=== PATIENT | female | born 1995 | race Two or more races ===

== ENCOUNTER 2018-05-26 21:35 | Emergency (ER) | payer OTHER ==
[~2018-05-26] VITALS: Ht 154.9 cm; Wt 90.7 kg
[2018-05-26 22:40] LABS: Basophils # (auto) 0 uL; Basophils % (auto) 0.4 % (0.0-2.0); Eosinophils # (auto) 0.2 uL; Eosinophils % (auto) 2.9 % (0.0-7.0); Hematocrit 42.4 % (36.0-46.0); Hemoglobin 14.1 g/dL (12.2-16.2); Lymphocytes # (auto) 2.9 uL; Lymphocytes % (auto) 41.6 % (10.0-50.0); Mean Corpuscular Hemoglobin 28.8 pg (28.0-32.0); Mean Corpuscular Hgb Conc. 33.4 g/dL (32.0-36.0); Mean Corpuscular Volume 86.3 fL (80.0-100.0); Monocytes # (auto) 0.7 uL; Monocytes % (auto) 10.2 % (0.0-12.0); Neutrophils # (auto) 3.1 uL; Neutrophils % (auto) 44.9 % (37.0-80.0); Nucleated Red Blood Cells % 0.2 %; Platelet Count (auto) 273 10^3/uL (140-450); Red Blood Cells 4.91 10^6/uL (4.0-5.20); White Blood Cell 6.9 10^3/uL (4.4-10.8)
[2018-05-26 22:58] LABS: Albumin 3.8 g/dL (3.4-5.0); BUN/Creatinine Ratio 19.4; Calcium 8.5 mg/dL (8.5-10.1); Potassium 3.7 mmol/L (3.5-5.1)
[2018-05-26 23:00] LABS: Bilirubin, Total 0.3 mg/dL (0.2-1.0); Total Protein 8.1 g/dL (6.4-8.2)
[2018-05-27] MEDS ORDERED: KETOROLAC TROMETH 60MG/2ML VIAL IM ONE (00:30)
[2018-05-27] MEDS ORDERED: HYDROcodone-ACET 5/325MG TAB PO ONE (00:30)
[2018-05-27 00:32] VITALS: BP 112/71
== END 2018-05-27 00:40 | disposition home or self-care (01) ==
LOC: ER 21:35
DX: G43.909 Migraine, unspecified, not intractable, without status migrainosus (principal); R11.2 Nausea with vomiting, unspecified
CPT/HCPCS: 36415; 70450; 80053; 81025; 85025; 96372; 99284; J1885

== ENCOUNTER 2018-12-25 10:36 | Emergency (ER) | payer OTHER ==
[~2018-12-25] VITALS: Ht 154.9 cm; Wt 90.7 kg
[2018-12-25 10:48] VITALS: BP 130/79
[2018-12-25 11:19] LABS: Basophils # (auto) 0 uL; Basophils % (auto) 0.3 % (0.0-2.0); Eosinophils # (auto) 0.1 uL; Hematocrit 39.9 % (36.0-46.0); Hemoglobin 13.7 g/dL (12.2-16.2); Lymphocytes # (auto) 3.2 uL; Lymphocytes % (auto) 35.2 % (10.0-50.0); Mean Corpuscular Hemoglobin 29.9 pg (28.0-32.0); Mean Corpuscular Hgb Conc. 34.3 g/dL (32.0-36.0); Mean Corpuscular Volume 87.1 fL (80.0-100.0); Monocytes # (auto) 0.6 uL; Monocytes % (auto) 6.2 % (0.0-12.0); Neutrophils # (auto) 5.2 uL; Neutrophils % (auto) 57.3 % (37.0-80.0); Nucleated Red Blood Cells % 0.1 %; Platelet Count (auto) 368 10^3/uL (140-450); Red Blood Cells 4.58 10^6/uL (4.0-5.20); Red Cell Distribution Width 13.4 % (11.8-14.3)
== END 2018-12-25 12:21 | disposition home or self-care (01) ==
LOC: ER 10:36
DX: R04.0 Epistaxis (principal); R11.0 Nausea
CPT/HCPCS: 36415; 85025

== ENCOUNTER 2019-11-25 08:31 | Emergency (ER) | payer MEDICAID, OTHER ==
[~2019-11-25] VITALS: Ht 154.9 cm; Wt 92.5 kg
[2019-11-25 09:52] VITALS: BP 180/58
== END 2019-11-25 11:34 | disposition home or self-care (01) ==
LOC: ER 08:31
DX: S60.445A External constriction of left ring finger, initial encounter (principal); S60.414A Abrasion of right ring finger, initial encounter; X58.XXXA Exposure to other specified factors, initial encounter; Y93.89 Activity, other specified; Y92.89 Other specified places as the place of occurrence of the external cause; Y99.8 Other external cause status

== ENCOUNTER 2021-10-11 07:13 | Emergency (ER) | payer MEDICAID ==
[~2021-10-11] VITALS: Ht 152.4 cm; Wt 63.0 kg
[2021-10-11] MEDS ORDERED: CYCL-837 PO (08:17)
[2021-10-11 08:19] VITALS: BP 117/72
== END 2021-10-11 08:58 | disposition home or self-care (01) ==
LOC: ER 07:13
DX: R59.0 Localized enlarged lymph nodes (principal); Z86.2 Personal history of diseases of the blood and blood-forming organs and certain disorders involving the immune mechanism; Z79.899 Other long term (current) drug therapy

== ENCOUNTER 2024-10-04 02:43 | Inpatient (IN) | payer MEDICAID ==
[~2024-10-04] VITALS: Ht 152.4 cm; Wt 65.0 kg
[2024-10-04] VITALS (38 sets, daily range): BP systolic 84–103; BP diastolic 45–67; PULSE 86–131; RESP 12–26; TEMP 98.4–99.1; O2SAT 95–100
[~2024-10-04 02:43] MED LIST: CYCL-837 PO
[2024-10-04] MEDS: SODIUM CHLORIDE 0.9% 1,000 ML IV ONE ×4 (03:00→06:59)
--- NOTE | 2024-10-04 03:20 | ED.PDOC ---
History of Present Illness HPI Comments 28-year-old female came to ER for flu-like symptoms. Patient denies any medical problems. At about 10:00 p.m. last night, started having lower abdominal crampi ng pain. By 12 midnight, cramping persisted, now associated with chills, shaking, back pains, dizziness, lightheadedness, muscle and joint pains, nausea. Patient's self-medicated with Tylenol prior to coming to the ER. Upon arrival, blood pressure of 104/68 mm Hg, tachycardic at the 150s, febrile at 101 F REVIEW OF SYSTEMS: (+) fever, (+) chills, or fatigue HEENT: No sore throat, no earache, no congestion, no neck pain. Cardiac: No chest pain. No palpitations. Lungs: No shortness of breath, no cough. GI: No nausea, no vomiting, no diarrhea, no constipation, no abdominal pain : No dysuria, frequency, or urgency. No hematuria. Musculoskeletal: No joint pain , no joint swelling, no extremity edema. (+) back pain Skin: No rash, no itching. Neuro: No headache, (+) dizziness, no weakness Physical exam General: Awake, alert and oriented. No acute distress. Skin: Skin in warm, dry and intact. Appropriate color for ethnicity. Nailbeds pink with no cyanosis. HEENT: The head is normocephalic and atraumatic. Conjunctivae are clear without exudates or hemorrhage. Sclera is non-icteric. EOM are intact. No signs of n ystagmus. Eyelids are normal in appearance without swelling or lesions. Oral mucosa is pink and moist Neck: The neck is supple with normal range of motion. No JVD. Cardiac: Heart rate and rhythm are normal. No murmurs, gallops, or rubs are auscultated. Respiratory: No signs of respiratory distress. Lung sounds are clear in all lobes bilaterally without rales, rhonchi, or wheezes. Abdominal: Abdomen is soft, non-tender without distention. Bowel sounds are present and normoactive in all four quadrants. Extremities: Upper and lower extremities are atraumatic in appearance without deformity or edema. Neurological: The patient is awake, alert and oriented to person, place, and time with normal speech. Speech is clear. There is no facial asymmetry. Psychiatric: Appropriate mood and affect. Good judgement and insight. No visual or auditory hallucinations. Chief Complaint: Flu like Time Seen by MD: 03:19 Primary Care Provider: DR. CANAS Reviewed Notes: Nurses Notes Allergies: Coded Allergies: NO KNOWN ALLERGIES (Unverified , 08/05/14) Home Meds Active Scripts Cyclobenzaprine Hcl (Cyclobenzaprine Hcl) 5 Mg Tab, 1 TAB PO QPM PRN, #14 TAB 0 Refills Prov:BRANDY SIEGEL JU 10/11/21 Information Source: Patient Mode of Arrival: Ambulatory Severity: Moderate Past Medical History PAST MEDICAL HISTORY: Anemia Surgical History: Denies all surgeries IV RN History: No Pertinent IV RN History Family History Family History: Reviewed,noncontributory to illness Social History Smoker: Non-Smoker Alcohol: Denies ETOH Use Drugs: Denies Drug Use Lives In: Home Was a procedure done? Was a procedure done?: No EKG EKG : Pulse Rate (adult): 145 Cardiac Rhythm: ST Comments Prolonged QT interval Differential Dx Considerations may include: Differential diagnoses considered include but are not limited to sepsis, CVA, ACS, PE, stroke, ICH, adrenal insufficiency, viral syndrome, thyroid storm, myxedema coma , DKA, HHS, hypoglycemia, anemia, GI bleeding, renal failure, dehydration, hepatic failure, electrolyte imbalance, carbon monoxide poisoning, malignancy, UTI, other. X-Ray, Labs, Meds, VS Vital Signs Date Time Temp Pulse Resp B/P (MAP) Pulse Ox O2 Delivery O2 Flow Rate FiO2 10/04/24 04:00 130 10/04/24 03:32 101.5 10/04/24 03:20 145 10/04/24 03:11 145 10/04/24 02:43 101.0 183 22 104/68 98 101.0 Lab Test 10/04/24 05:00 10/04/24 03:08 10/04/24 02:52 Range/Units Urine Opiates Screen Pending Urine Fentanyl Screen Pending Urine Barbiturates Screen Pending Urine Phencyclidine Screen Pending Urine Amphetamines Screen Pending Urine Benzodiazepines Screen Pending Urine Cocaine Screen Pending Urine Cannabinoids Screen Pending White Blood Count 7.4 4.4-10.8 10^3/uL Red Blood Count 4.56 4.0-5.20 10^6/uL Hemoglobin 14.2 12.2-16.2 g/dL Hematocrit 40.4 36.0-46.0 % Mean Corpuscular Volume 88.8 80.0-100.0 fL Mean Corpuscular Hemoglobin 31.2 28.0-32.0 pg Mean Corpuscular Hemoglobin Concent 35.1 32.0-36.0 g/dL Red Cell Distribution Width 13.1 11.8-14.3 % Platelet Count 257 140-450 10^3/uL Mean Platelet Volume 9.5 6.9-10.8 fL Neutrophils (%) (Auto) 94.2 H 37.0-80.0 % Lymphocytes (%) (Auto) 4.9 L 10.0-50.0 % Monocytes (%) (Auto) 0.8 0.0-12.0 % Eosinophils (%) (Auto) 0.1 0.0-7.0 % Basophils (%) (Auto) 0.0 0.0-2.0 % Neutrophils # (Auto) 7.0 1.6-8.6 10 ^3/uL Lymphocytes # (Auto) 0.4 0.4-5.4 10 ^3/uL Monocytes # (Auto) 0.1 0-1.3 10 ^3/uL Eosinophils # (Auto) 0 0-0.8 10 ^3/uL Basophils # (Auto) 0 0-0.2 10 ^3/uL Nucleated Red Blood Cells 0.0 % Sodium Level 139 136-145 mmol/L Potassium Level 2.8 L 3.5-5.1 mmol/L Chloride Level 106 98-107 mmol/L Carbon Dioxide Level 18 L 20-31 mmol/L Anion Gap 15 5-15 Blood Urea Nitrogen 12 9-23 mg/dL Creatinine 0.74 0.550-1.02 mg/dL Glomerular Filtration Rate Calc 114 >90 mL/min BUN/Creatinine Ratio 16.2 10.0-20.0 Serum Glucose 114 H 74-106 mg/dL Lactic Acid Level 1.8 0.4-2.0 mmol/L Calcium Level 9.3 8.7-10.4 mg/dL Total Bilirubin 0.6 0.2-1.0 mg/dL Aspartate Amino Transferase (AST) 48 H 13-40 U/L Alanine Aminotransferase (ALT) 35 7-40 U/L Alkaline Phosphatase 72 46-116 U/L Total Protein 7.4 5.7-8.2 g/dL Albumin 4.6 3.2-4.8 g/dL Plasma/Serum Blood Alcohol 3.3 <10 mg/dL Urine Color Pending Urine Clarity Pending Urine pH Pending Urine Specific [place] Pending Urine Protein Pending Urine Ketones Pending Urine Blood Pending Urine Nitrite Pending Urine Bilirubin Pending Urine Urobilinogen Pending Urine Leukocyte Esterase Pending Urine RBC Pending Urine Microscopic WBC Pending Urine Squamous Epithelial Cells Pending Urine Bacteria Pending Urine Glucose Pending Urine Test Pending Current Medications Medications (Trade) Dose Ordered Sig/Radha Route Start Time Stop Time Status Last Admin Sodium Chloride 1,000 ml @ 1,000 mls/hr Q1H ONCE IV 10/04/24 03:00 10/04/24 03:59 DC 10/04/24 03:00 Acetaminophen (Tylenol Tablet Or Capsule) 1,000 mg ONCE ONCE PO 10/04/24 03:15 10/04/24 03:16 DC 10/04/24 03:32 Piperacillin Sod/ Tazobactam Sod 100 ml @ 100 mls/hr ONCE ONCE IV 10/04/24 03:15 10/04/24 04:14 DC 10/04/24 03:31 Vancomycin HCl 200 ml @ 200 mls/hr ONCE ONCE IV 10/04/24 03:15 10/04/24 04:14 DC 10/04/24 04:15 Sodium Chloride 1,000 ml @ 1,000 mls/hr Q1H ONCE IV 10/04/24 03:15 10/04/24 04:14 DC 10/04/24 03:15 Time of 1ST Reevaluation: 03:12 Reevaluation 1ST: Unchanged Patient Education/Counseling: Other (Need for admission) Family Education/Counseling: No Family Present SEPSIS Sepsis Screen Date sepsis recognized/suspect: Oct 04, 2024 Time Sepsis recognized/suspect: 0243 Recent Procedure: No On Antibiotic Therapy: No Respiratory Rate >20: Yes Heart Rate >90: Yes Temp<36 C (96.8 F) or >38.3 C: Yes SBP <90 or MAP <65 mmHG: No New Acute Mental Status Change: No Is the patient on CPAP, BIPAP,: No Physician Orders Sodium Chloride 0.9% (10/04/24 03:00) Vital Signs Q1HR (10/04/24 02:52) Saline Lock (10/04/24 02:52) Retail Team Member (10/04/24 ) Rectal/Core Temps Only (10/04/24 02:52) Notify Md If Abnormal Vs (10/04/24 02:52) Blood Culture (10/04/24 02:52) Chest Xray 1 View (10/04/24 02:52) Urinalysis (10/04/24 02:52) Covid19 Antigen Luann (10/04/24 ) Rapid Influenza A&B (10/04/24 02:52) Test, Urine (10/04/24 02:52) Retail Team Member (10/04/24 ) Notify Md If Abnormal Vs (10/04/24 02:52) Electrocardigram (10/04/24 03:52) Electrocardigram (10/04/24 05:52) Potassium Chl 20meq/100ml (10/04/24 04:30) Drug Screen (10/04/24 04:21) Thyroid Stimulating Hormone (10/04/24 04:37) Vital Signs Date Time Temp Pulse Resp B/P (MAP) Pulse Ox O2 Delivery O2 Flow Rate FiO2 10/04/24 04:00 130 10/04/24 03:32 101.5 10/04/24 03:20 145 10/04/24 03:11 145 10/04/24 02:43 101.0 183 22 104/68 98 101.0 Laboratory Tests Test 10/04/24 03:08 Lactic Acid Level 1.8 mmol/L (0.4-2.0) White Blood Count 7.4 10^3/uL (4.4-10.8) Medications Medications Dose Ordered Sig/Radha Route Start Time Stop Time Status Last Admin Dose Admin Acetaminophen 1,000 mg ONCE ONCE PO 10/04/24 03:15 10/04/24 03:16 DC 10/04/24 03:32 Piperacillin Sod/ Tazobactam Sod 100 ml @ 100 mls/hr ONCE ONCE IV 10/04/24 03:15 10/04/24 04:14 DC 10/04/24 03:31 Sodium Chloride 1,000 ml @ 1,000 mls/hr Q1H ONCE IV 10/04/24 03:00 10/04/24 03:59 DC 10/04/24 03:00 Sodium Chloride 1,000 ml @ 1,000 mls/hr Q1H ONCE IV 10/04/24 03:15 10/04/24 04:14 DC 10/04/24 03:15 Vancomycin HCl 200 ml @ 200 mls/hr ONCE ONCE IV 10/04/24 03:15 10/04/24 04:14 DC 10/04/24 04:15 Departure 1 Departure Time of Disposition: 05:35 Impression: Primary Impression: Suspected sepsis Additional Impression: Hypokalemia Disposition: ADMITTED INPATIENT Condition: Guarded Comments 28-year-old female who presents to the emergency department with fever, tachyca rdia, hypotension concerning for sepsis. Sepsis protocol initiated in the ED. potassium replacement initiated. Patient admitted to hospitalist service for further treatment, evaluation and monitoring. Critical Care Note Critical Care Time?: No Stability Stability form required: No Heart Score Heart Score: Heart Score Response (Comments) Value History N/A 0 EKG N/A 0 Age N/A 0 Risk Factors N/A 0 Troponin N/A 0 Total 0 I personally scribed for CAROLINA AQUINO MD ([email or web address]) on 10/04/24 at 03:20. Electronically submitted by Matt Vasquez ([email or web address]). CAROLINA AQUINO MD Oct 04, 2024 03:20
--- NOTE | 2024-10-04 03:21 | ECG ---
[facility] Test Date: 2024-10-04 Test Time: 03:11:17 Pat Name: LAVINIA LANTIGUA Department: Room: 0246T Gender: F Personal Trainer: HAILEY : 1995 Requested By: CAROLINA AQUINO Order Number: [id number] Reading MD: Horacio Hightower Measurements Intervals [place] Rate: 145 P: 39 VA: 71 QRS: 35 QRSD: 87 T: -30 QT: 320 QTc: 497 Interpretive Statements Sinus tachycardia Borderline T abnormalities, diffuse leads Prolonged QT interval Electronically Signed On 10-07-2024 22:48:28 PDT by Horacio Hightower Please click the below link to view image of tracing.
[2024-10-04] MEDS: PIPERACILLIN-TAZOB 3.375GM 100 ML IV ONE ×2 (03:31→06:45)
[2024-10-04] MEDS: ACETAMINOPHEN 500 MG TAB or CAP PO ONE (03:32)
[2024-10-04 03:56] LABS: Hematocrit 40.4 % (36.0-46.0); Hemoglobin 14.2 g/dL (12.2-16.2); Mean Corpuscular Hemoglobin 31.2 pg (28.0-32.0); Mean Corpuscular Volume 88.8 fL (80.0-100.0); Nucleated Red Blood Cells % 0.0 %
[2024-10-04 04:14] LABS: Alanine Aminotransferase 35 U/L (7-40); Albumin 4.6 g/dL (3.2-4.8); Alkaline Phosphatase 72 U/L (46-116); Anion Gap 15 (5-15); BUN/Creatinine Ratio 16.2 (10.0-20.0); Bilirubin, Total 0.6 mg/dL (0.2-1.0); Blood Urea Nitrogen 12 mg/dL (9-23); Calcium 9.3 mg/dL (8.7-10.4); Carbon Dioxide 18 mmol/L (20-31); Chloride 106 mmol/L (98-107); Glucose 114 mg/dL (74-106); Potassium 2.8 mmol/L (3.5-5.1); Sodium 139 mmol/L (136-145); Total Protein 7.4 g/dL (5.7-8.2)
[2024-10-04] MEDS: VANCOMYCIN 1GM/200ML PM 200 ML IV ONE (04:15)
[2024-10-04] MEDS: POTASSIUM CHL 20MEQ/100ML 100 ML IV ONE (04:30)
[2024-10-04] MEDS: VANCOMYCIN HCL 1000 MG VL ONE (04:37)
[2024-10-04 05:52] LABS: Urine Protein, UAD Negative (Negative)
[2024-10-04 06:05] LABS: Amphetamine Screen, Urine Neg (NEGATIVE); Barbiturate Scree,Urine Neg (NEGATIVE); Benzodiazephine Screen, Urine Neg (NEGATIVE); Cannabinoid Screen, Urine Neg (NEGATIVE); Cocaine Screen, Urine Neg (NEGATIVE); Opiate Scree,Urine Neg (NEGATIVE); Phencyclidine Screen, Urine Neg (NEGATIVE)
--- NOTE | 2024-10-04 06:27 | DVH ---
CHEST RADIOGRAPH Indication: Suspected Sepsis Technique: Single frontal view of the chest was obtained Comparison: None FINDINGS: Lines and Tubes: None Lungs: No focal consolidation. Pleura: No effusion. No pneumothorax. Cardiomediastinal contours: Unremarkable Bones: No acute osseous abnormality. IMPRESSION: 1. No acute cardiopulmonary disease.
--- NOTE | 2024-10-04 06:39 | DVHHP2 ---
History of Present Illness Reason for Visit: fever chills body aches History of Present Illness 28-year-old female with a history of anemia and preeclampsia presents with fever, chills, body aches, nausea, headache, diarrhea, and lower abdominal cramping that began last night. She reports possible sick contact exposure at home. Last week, she experienced mild runny nose and nasal congestion, which had resolved. This morning, she awoke with the current symptoms and noted that her heart was pounding rapidly. She denies chest pain, shortness of breath, vaginal discharge, or dyspareunia. No prior history of heart disease.On arrival, she was febrile (Tmax 101.0F) and tachycardic (HR 183). She received 3 liters of IV normal saline and acetaminophen in the ED. CBC was unremarkable; potassium was 2.8, glucose 114, AST 48, TSH 1.40 UA unremarkable, ethanol level 3.3. COVID-19 and influenza testing were sent and are pending. Chest X-ray was unremarkable. She will be admitted for further evaluation and management of likely acute sepsis of unknown source. Past Medical History See HPI above Past Surgical History See HPI above Family History Reviewed, non-contributory to the management of this case. Past Social History The patient lives at home, denies smoking, alcohol or illicit drugs abuse. Review of Systems Constitutional: Yes: Fever, Chills, Weakness, Malaise; No: Sweats, Other Eyes: No: Pain, Vision change, Conjunctivae inflammation, Eyelid inflammation, Other, Redness ENT: No: Ear pain, Ear discharge, Nose pain, Nose discharge, Nose congestion, Mouth pain, Mouth swelling, Throat pain, Throat swelling, Other Respiratory: No: Cough, Dry, Shortness of breath, SOB with excertion, Wheezing, Hemoptysis, Pleuritic Pain, Sputum, Wheezing, Other Cardiovascular: No: Chest Pain, Palpitations, Orthopnea, Paroxysmal Noc. Dyspnea, Edema, Lt Headedness, Other Gastrointestinal: Nausea, Vomiting, Abdominal Pain, Diarrhea; No: Constipation, Melena, Hematochezia, Other Genitourinary: No Dysuria, No Frequency, No Incontinence, No Hematuria, No Retention, No Other Musculoskeletal: No: other, neck pain, shoulder pain, arm pain, back pain, hand pain, leg pain, foot pain Skin: No: Rash, Lesions, Jaundice, Bruising, Other Neurological: Weakness; No: Numbness, Incoordination, Change in speech, Confusion, Seizures, Other Allergies: Coded Allergies: NO KNOWN ALLERGIES (Unverified , 08/05/14) Exam Vital Signs Vital Signs Date Time Temp Pulse Resp B/P (MAP) Pulse Ox O2 Delivery O2 Flow Rate FiO2 10/04/24 04:00 130 10/04/24 03:32 101.5 10/04/24 02:43 22 104/68 98 General Appearance: Alert, Oriented X3, Cooperative, Other (Flushed face) HEENT: Atraumatic, PERRLA, EOMI, Mucous membr. moist/pink Respiratory: Clear to auscultation, Normal air movement Cardiovascular: Normal S1, Normal S2, Other (Tachycardia) Abdominal: Normal bowel sounds, Soft, No tenderness, No hepatospenomegaly, No masses Extremities: No clubbing, No cyanosis, No edema, Normal pulses, No tenderness/swelling Skin: No rashes, No breakdown, No significant lesion Neuro: Other (Neuro nonfocal) Psych/Mental Status: Mental status NL, Mood NL Labs/Xrays Chest x-ray unremarkable I reviewed labs, imaging CT scan abdomen pelvis, EKG and all diagnostic studies on this patient from ED records and the medical chart Labs Test 10/04/24 05:00 10/04/24 03:08 10/04/24 02:52 Range/Units Urine Opiates Screen Neg NEGATIVE Urine Fentanyl Screen Neg NEGATIVE Urine Barbiturates Screen Neg NEGATIVE Urine Phencyclidine Screen Neg NEGATIVE Urine Amphetamines Screen Neg NEGATIVE Urine Benzodiazepines Screen Neg NEGATIVE Urine Cocaine Screen Neg NEGATIVE Urine Cannabinoids Screen Neg NEGATIVE White Blood Count 7.4 4.4-10.8 10^3/uL Red Blood Count 4.56 4.0-5.20 10^6/uL Hemoglobin 14.2 12.2-16.2 g/dL Hematocrit 40.4 36.0-46.0 % Mean Corpuscular Volume 88.8 80.0-100.0 fL Mean Corpuscular Hemoglobin 31.2 28.0-32.0 pg Mean Corpuscular Hemoglobin Concent 35.1 32.0-36.0 g/dL Red Cell Distribution Width 13.1 11.8-14.3 % Platelet Count 257 140-450 10^3/uL Mean Platelet Volume 9.5 6.9-10.8 fL Neutrophils (%) (Auto) 94.2 H 37.0-80.0 % Lymphocytes (%) (Auto) 4.9 L 10.0-50.0 % Monocytes (%) (Auto) 0.8 0.0-12.0 % Eosinophils (%) (Auto) 0.1 0.0-7.0 % Basophils (%) (Auto) 0.0 0.0-2.0 % Neutrophils # (Auto) 7.0 1.6-8.6 10 ^3/uL Lymphocytes # (Auto) 0.4 0.4-5.4 10 ^3/uL Monocytes # (Auto) 0.1 0-1.3 10 ^3/uL Eosinophils # (Auto) 0 0-0.8 10 ^3/uL Basophils # (Auto) 0 0-0.2 10 ^3/uL Nucleated Red Blood Cells 0.0 % Sodium Level 139 136-145 mmol/L Potassium Level 2.8 L 3.5-5.1 mmol/L Chloride Level 106 98-107 mmol/L Carbon Dioxide Level 18 L 20-31 mmol/L Anion Gap 15 5-15 Blood Urea Nitrogen 12 9-23 mg/dL Creatinine 0.74 0.550-1.02 mg/dL Glomerular Filtration Rate Calc 114 >90 mL/min BUN/Creatinine Ratio 16.2 10.0-20.0 Serum Glucose 114 H 74-106 mg/dL Lactic Acid Level 1.8 0.4-2.0 mmol/L Calcium Level 9.3 8.7-10.4 mg/dL Total Bilirubin 0.6 0.2-1.0 mg/dL Aspartate Amino Transferase (AST) 48 H 13-40 U/L Alanine Aminotransferase (ALT) 35 7-40 U/L Alkaline Phosphatase 72 46-116 U/L Total Protein 7.4 5.7-8.2 g/dL Albumin 4.6 3.2-4.8 g/dL Thyroid Stimulating Hormone (TSH) 1.40 0.55-4.78 uIU/mL Plasma/Serum Blood Alcohol 3.3 <10 mg/dL Urine Color Light-yellow Yellow Urine Clarity Clear Clear Urine pH 5.5 5.0-9.0 Urine Specific [place] 1.018 1.001-1.035 Urine Protein Negative Negative Urine Ketones Negative Negative Urine Blood Negative Negative /uL Urine Nitrite Negative Negative Urine Bilirubin Negative Negative Urine Urobilinogen Normal Negative mg/dL Urine Leukocyte Esterase Negative Negative /uL Urine RBC 1 0 - 4 /hpf Urine Microscopic WBC 1 0-5 /HPF Urine Squamous Epithelial Cells None seen <5 /hpf Urine Bacteria None seen None Seen /hpf Urine Glucose Normal Normal mg/dL Urine Test Negative Negative SEPSIS Sepsis Screen Date sepsis recognized/suspect: Oct 04, 2024 Time Sepsis recognized/suspect: 242 Recent Procedure: No On Antibiotic Therapy: No Respiratory Rate >20: Yes Heart Rate >90: Yes Temp<36 C (96.8 F) or >38.3 C: Yes SBP <90 or MAP <65 mmHG: No New Acute Mental Status Change: No Is the patient on CPAP, BIPAP,: No Physician Orders Sodium Chloride 0.9% (10/04/24 03:00) Vital Signs Q1HR (10/04/24 02:52) Saline Lock (10/04/24 02:52) Snack Bar Cook (10/04/24 ) Rectal/Core Temps Only (10/04/24 02:52) Notify Md If Abnormal Vs (10/04/24 02:52) Blood Culture (10/04/24 02:52) Chest Xray 1 View (10/04/24 02:52) Covid19 Antigen Luann (10/04/24 ) Rapid Influenza A&B (10/04/24 02:52) Snack Bar Cook (10/04/24 ) Notify Md If Abnormal Vs (10/04/24 02:52) Electrocardigram (10/04/24 03:52) Electrocardigram (10/04/24 05:52) Drug Screen (10/04/24 06:18) Vital Signs Date Time Temp Pulse Resp B/P (MAP) Pulse Ox O2 Delivery O2 Flow Rate FiO2 10/04/24 04:00 130 10/04/24 03:32 101.5 10/04/24 03:20 145 10/04/24 03:11 145 10/04/24 02:43 101.0 183 22 104/68 98 101.0 Laboratory Tests Test 10/04/24 03:08 Lactic Acid Level 1.8 mmol/L (0.4-2.0) White Blood Count 7.4 10^3/uL (4.4-10.8) Medications Medications Dose Ordered Sig/Radha Route Start Time Stop Time Status Last Admin Dose Admin Acetaminophen 1,000 mg ONCE ONCE PO 10/04/24 03:15 10/04/24 03:16 DC 10/04/24 03:32 1,000 MG Piperacillin Sod/ Tazobactam Sod 100 ml @ 100 mls/hr ONCE ONCE IV 10/04/24 03:15 10/04/24 04:14 DC 10/04/24 03:31 100 MLS/HR Potassium Chloride 100 ml @ 50 mls/hr ONCE ONCE IV 10/04/24 04:30 10/04/24 06:29 DC 10/04/24 04:30 50 MLS/HR Sodium Chloride 1,000 ml @ 130 mls/hr Q7H42M ONCE IV 10/04/24 03:00 10/04/24 10:41 10/04/24 03:00 130 MLS/HR Sodium Chloride 1,000 ml @ 1,000 mls/hr Q1H ONCE IV 10/04/24 03:00 10/04/24 03:59 DC 10/04/24 03:00 1,000 MLS/HR Sodium Chloride 1,000 ml @ 1,000 mls/hr Q1H ONCE IV 10/04/24 03:15 10/04/24 04:14 DC 10/04/24 03:15 1,000 MLS/HR Vancomycin HCl 200 ml @ 200 mls/hr ONCE ONCE IV 10/04/24 03:15 10/04/24 04:14 DC 10/04/24 04:15 200 MLS/HR Assessment/Plan Assessment/Plan 28 yr old with Acute sepsis of unknown source with severe tachycardia and hypokalemia requiring inpatient monitoring and IV antibiotics. acute Sepsis unknown source Admit to inpatient unit for close monitoring. Empiric broad-spectrum antibiotics: vanco and zosyn (adjust per culture results). Blood cultures 2 fu results ordered lactate and repeat if initially elevated. Continuous cardiac and pulse oximetry monitoring on tele Trend vitals and monitor for hemodynamic instability. ordered ct scan abd since with pain acute intractable abdominal pain ordered ct scan abd pelvis fu results ua negative for infection acute Sinus Tachycardia secondary to sepsis/fever found on trestle mainternance laborer on telemetry. Treat underlying infection and dehydration. Avoid beta-blockers unless tachycardia persists after stabilization. tsh normal denies any hx of iv drug use ordered echo fu results ordered mag and phos acute diarrhea ordered stool c diff fu results acute Hypokalemia Replace potassium to maintain >4.0 Recheck BMP after replacement. Monitor magnesium level and replete if low. acute Fever Antipyretics as needed with acetaminophen). Monitor response to therapy. ordered covid and influenza fu results Anemia chronic, unspecified Monitor CBC during admission. Assess for any acute drop in hemoglobin related to infection or other causes. fen/ppx npo for now ivf scd no gi ppx since no hx of gerds or gi bleed plan admit to tele Admit for sepsis management, IV antibiotics, electrolyte correction, and telemetry monitoring. Discharge once afebrile, cultures negative or addressed, potassium normalized, and tachycardia resolved. Plan discussed with: Patient Date of Service: Oct 04, 2024 Billing Provider: NILE LESLIE DNP Common Visit Codes: 24043-[id number] INP/OBS CARE (HIGH), [id number] CARE 30- 74 MIN (Total critical care time: Approximately 45 minutes This critical care time included obtaining a history; examining the patient; pulse oximetry; ordering and review of studies; arranging urgent treatment with development of a management plan; evaluation of patient's response to treatment; frequent reassessment; and, discussions with other providers.) NILE LESLIE DNP Oct 04, 2024 06:39
[2024-10-04] MEDS ORDERED: VANCOMYCIN PER PHARMACY 0 MG IV SCH (06:45)
[2024-10-04] MEDS ORDERED: MORPHINE SULFATE INJ 2 MG/ml SYRG IV PRN (06:45)
[2024-10-04] MEDS ORDERED: NITROGLYCERIN 0.4 MG SL TAB SL PRN (06:45)
[2024-10-04 07:26] LABS: Magnesium 1.2 mg/dL (1.6-2.6)
[2024-10-04] MEDS: SODIUM CHLORIDE 0.9% 1,000 ML IV SCH ×3 (07:30→22:05)
[2024-10-04] MEDS ORDERED: VANCOMYCIN 1.25gm/250mL PREMIX or KIT IV ONE (07:30)
[2024-10-04] MEDS: IOHEXOL 350 MG/ML 100ML IJ ONE (08:10)
[2024-10-04] MEDS: ENOXAPARIN SOD 40 MG/0.4 ML SYRINGE SC SCH (08:30)
--- NOTE | 2024-10-04 09:22 | DVH ---
CT CT AB PEL WITH IV CON ONLY INDICATION: EVAL FOR ACUTE ABD PAIN EXAM DATE: 10/04/2024 07:43 AM COMPARISON: None RADIATION DOSE: CTDIvol: 14.67 mGy, DLP: 751.69 mGy*cm PROCEDURE: Helical CT images were obtained of the abdomen and pelvis with IV contrast Sagittal and co sharon reconstructions are provided. ORAL CONTRAST: None. ADDITIONAL IMAGES / REFORMATS: None All CT s cans at this medical facility are performed using dose modulation techniques as appropriate to a perf ormed exam including the following: Automated exposure control was utilized; adjustment of the MA and /or KV according to patient size; and use of iterative reconstruction technique. FINDINGS: LUNG BASE: Normal. LIVER: Normal. GALLBLADDER AND BILIARY TREE: Decompressed gallbladder with mild wall thickening, nonspecific. No int ra- or extrahepatic biliary ductal dilation. PANCREAS: Normal. SPLEEN: Normal. BOWEL: Normal. Normal appendix. ADRENALS: Normal. KIDNEYS AND URETER: Normal. BLADDER: Normal. REPRODUCTIVE ORGANS: Normal. LYMPH NODES:No lymphadenopathy. PERITONEUM: No ascites or free air. No other fluid collection. VESSELS: Normal. RETROPERITONEUM: Normal. ABDOMINAL WALL: Normal. BONES: Normal. IMPRESSION: Decompressed gallbladder with mild wall thickening, nonspecific.
[2024-10-04 09:34] LABS: COVID19 ANTIGEN SOFIA FIA NEGATIVE (NEGATIVE)
[2024-10-04] MEDS: MAGNESIUM SULFATE 1GM/100ML 100 ML IV SCH (10:00)
[2024-10-04] MEDS: POTASSIUM CHL 20MEQ/100ML 100 ML IV SCH (10:00)
[2024-10-04] MEDS: PANTOPRAZOLE 40 MG/10 ML VIAL INJ IV ONE (10:22)
[2024-10-04] MEDS: ONDANSETRON HCL 4 MG/2 ML VIAL IV PRN (10:22)
--- NOTE | 2024-10-04 11:32 | DVH ---
INDICATION: cholecystitis TECHNIQUE: Multiple real-time sonographic images were obtained of the right upper quadrant. COMPARISON: None FINDINGS: The liver demonstrates homogenous echotexture without focal mass lesions. The liver measure s 15cm. There is no intrahepatic or extrahepatic ductal dilatation. The common duct measures 0.4 m m. The gallbladder is without evidence of stone or sludge. The gallbladder wall measures 10 mm and is t hickened. The right kidney measures 12 cm. The right kidney is normal in contour, size, and shape. The echogen icity is normal. There is no hydronephrosis. The pancreas is not well visualized due to overlying bowel gas. IMPRESSION: Thickened gallbladder wall. Please correlate with Alk Phos, bilirubin, blood culture, fever, WBC for primary cholecystitis, versus secondary wall thickening with lipase for pancreatitis, AST/ALT for hep atitis/cirrhosis, BUN/Cr for renal failure, and BNP/albumin for CHF/low protein state.
--- NOTE | 2024-10-04 12:13 | DVHPNRES ---
Progress Note Date Seen: Oct 04, 2024 Resident Creating Document: NIDIA DILLON RESIDENT Medical Necessity Reason Pt with a Central, PICC or Fol: No Subjective Review of Systems LAVINIA LANTIGUA is a 28 years old female with no significant PMH except mild anemia and preeclampsia presented to the ED with the chief complaints of abdominal pain which started night on the day of admission. Patient reported before going to sleep last night she has been having mild abdominal pain which appeared to be due to her end of menstrual cycle but in the middle of the night she woke up with severe abdominal pain cramping radiating to back associated with severe nausea, 3 episodes of watery diarrhea without blood, chills, fever, dizziness which prompted her to visit ED. patient reported she has been doing fine all the days except having flu-like illness 2 weeks prior which is resolved but patient reported yesterday she had is a pizza but no other unusual food, no recent sick contacts, no recent travel, no shortness of breath, no chest pain, no other acute symptoms.. Patient denies history of STDs. Patient reported 2 weeks ago she was bitten by mosquitoes but experienced no symptoms after that. On arrival to ED patient found to be in sepsis with T-max 101, tachycardic with heart rate 183, given 3 L of IV normal saline. PMH: Anemia, preeclampsia during resolved PSH: None Family history: Grandmother endometriosis, renal failure and diabetes Social history: Lives at home. Denies smoking but occasional alcohol use and denies other drug abuse Allergies: No known allergies Home medications: None Patient seen and examined at the bedside. Patient reported improvement in her abdominal pain and diarrhea since admission, reported no new complaints at this time. Patient is currently on Zosyn, correcting electrolytes and giving fluids. CT abdominal pelvis and gallbladder ultrasound showed GB wall thickening. Ordered stool and blood culture. Objective vital signs Vital Sign Date Time Temp Pulse Resp B/P (MAP) Pulse Ox O2 Delivery O2 Flow Rate FiO2 10/04/24 12:00 110 23 93/63 (73) 97 10/04/24 08:41 98.4 98.4 10/04/24 07:34 Room Air* 0 21 medications Current Medications Medications Dose Ordered Sig/Radha Route Start Time Stop Time Status Last Admin Dose Admin Ondansetron HCl 4 mg Q4HP PRN IV 10/04/24 06:45 10/04/24 10:22 4 MG Morphine Sulfate 2 mg Q4HPRN PRN IV 10/04/24 06:45 Enoxaparin Sodium 40 mg DAILY SC 10/04/24 06:45 10/04/24 08:30 40 MG Nitroglycerin 0.4 mg Q5MINP PRN SL 10/04/24 06:45 Piperacillin Sod/ Tazobactam Sod 100 ml @ 25 mls/hr Q6HR IV 10/04/24 12:00 Magnesium Sulfate/ Dextrose 100 ml @ 100 mls/hr Q1HR IV 10/04/24 10:00 10/04/24 13:59 10/04/24 11:05 100 MLS/HR Potassium Chloride 100 ml @ 50 mls/hr Q2H IV 10/04/24 09:45 10/04/24 13:44 10/04/24 10:23 50 MLS/HR Sodium Chloride 1,000 ml @ 150 mls/hr Q6H40M IV 10/04/24 10:15 10/04/24 10:15 150 MLS/HR Pantoprazole Sodium 40 mg DAILY IV 10/05/24 10:00 Examination Pt is lying on bed General Appearance: Alert, Oriented X3, Cooperative, Not in acute distress HEENT: Atraumatic, Mucous membranes moist/pink Respiratory: Clear to auscultation, Normal air movement, No added sounds Cardiovascular: Regular rate, Normal S1, Normal S2, No murmurs Abdominal: Hypoactive bowel sounds, soft, not distended but tenderness more in umbilical area Extremities: No edema, Normal pulses, No tenderness/swelling Skin: No Significant rash, except past surgical scars Neuro: Normal speech, sensorimotor deficits none Psych/Mental Status: Mental status NL, Mood NL 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 shock likely from gastroenteritis # ? Hypovolemic shock likely from diarrhea # Hypotension likely due to above - given 3 bsgs of IV saline - No pressors for now - continue IV normal saline 150 mL/hour - continuously monitor vitals - continue IV ABX -add Levophed if needed RS GI/Liver # Possible acute gastroenteritis likely infectious etiology # dehydration likely due to above # rule out C diff # R/o Acute pancreatitis # R/o cholecystitis - CT abdominal pelvis and gallbladder ultrasound showed GB wall thickening -ordered stool cultures, pending -Zosyn for now -continue IVF -monitor labs -initiated diet clear liquids and advanced as tolerated -supportive management with antipyretics. # GERD -IV Protonix 40 mg /Kidney/ Metabolic # Hypokalemia # hypomagnesemia # hypophosphatemia - Repleting - Monitor lab Heme-Onc MSK/SKin PUD PPX: Protonix DVT PPX: Lovenox Diet: Clear liquids advanced as tolerated Goals of care addressed with the patient for more than 27 minutes: Full code status Plan updated to patient and patient's partner bedside Case discussed with Dr Emmanuel regarding IVF, antibiotics. Clinical time spent more than 71 minutes Plan discussed with: Patient My Orders My Orders Orders - NIDIA DILLON RESIDENT Procedure Category Date Status Time Magnesium Sulfate PHA 10/04/24 In Process 1gm/100ml 10:00 Potassium Chl PHA 10/04/24 In Process 20meq/100ml 09:45 Potassium Phosphate PHA 10/04/24 In Process 13:45 Stool Wbc LAB 10/04/24 Logged 09:45 Stool Bacterial REFUGIO 10/04/24 Uncollected Culture 09:45 Sodium Chloride 0.9% PHA 10/04/24 In Process 10:15 Clear Liq Diet DIET 10/04/24 Transmitted Lunch Communication Order ORDERS 10/04/24 Transmitted 10:04 Pantoprazole PHA 10/05/24 In Process (Protonix) 10:00 Gallbladder US 10/04/24 Resulted 10:17 NIDIA DILLON RESIDENT Oct 04, 2024 12:13
[2024-10-04] MEDS: PIPERACILLIN-TAZOB 3.375GM 100 ML IV SCH (12:49)
[2024-10-04] MEDS: POTASSIUM PHOSPHATE 26.4 MEQ in SODIUM CHL 0.9% 100 ML IV ONE (14:28)
[2024-10-04] MEDS: ACETAMINOPHEN 325 MG TAB PO PRN (16:08)
[2024-10-04 18:10] LABS: Potassium 3.8 mmol/L (3.5-5.1)
[2024-10-04 18:16] LABS: Magnesium 2.4 mg/dL (1.6-2.6)
[2024-10-05] VITALS (34 sets, daily range): BP systolic 78–125; BP diastolic 41–87; PULSE 69–107; RESP 10–28; TEMP 98.1–98.8; O2SAT 95–100
--- NOTE | 2024-10-05 01:03 | DVHSR ---
APPROVED REPORT EXAM: Two-dimensional and M-mode echocardiogram with Doppler and color Doppler. Blood Pressure: 88/41 mmHg INDICATION Eval for cardiac function and EF RISK FACTORS Height: 60, Weight: 138 DIMENSIONS LVDd4.6 (3.8-5.7cm)LA (2D)3.8 (1.9-4.0cm)Aortic Root2.8 (2.0-3.7cm) LVDs3.1 (2.5-4.0cm)LA (MM) (1.9-4.0cm)Aortic Cusp Exc1.6 (1.5-2.0cm) EF (%) 60.0 (55-70%)Rt. Atrium4.5 (1.9-4.0cm)Asc. Aorta cm IVSd0.9 (0.7-1.1cm)RV (D) (1.8-2.4cm) PWd0.9 (0.7-1.1cm) Mitral Valve MitralMitral Stenosis E/A ratio0.02D MVAcm2 Aortic Valve Aortic ValveAortic Stenosis V10.88m/[place] Mean GR.4mmHg V21.39m/[place] Peak GR.8mmHg LVOT Diameter2.3 (1.8-2.4cm)Doppler AVA2.63cm2 Pulmonic Valve V20.89m/s Tricuspid Valve TR Velocity1.99m/s [id number] Conclusion LV EF IS 65% AND IS NORMAL NORMAL VALVES NO EFFUSION NORMAL RV FUNCTION,SIZE AND PRESSURE
[2024-10-05 06:11] LABS: Hematocrit 32.4 % (36.0-46.0); Hemoglobin 11.4 g/dL (12.2-16.2); Mean Corpuscular Hemoglobin 31.4 pg (28.0-32.0); Mean Corpuscular Volume 89.6 fL (80.0-100.0); Nucleated Red Blood Cells % 0.1 %
[2024-10-05 06:20] LABS: Albumin 3.2 g/dL (3.2-4.8); Alkaline Phosphatase 74 U/L (46-116); Anion Gap 7 (5-15); Carbon Dioxide 20 mmol/L (20-31); Glucose 87 mg/dL (74-106); Magnesium 2.2 mg/dL (1.6-2.6); Potassium 3.9 mmol/L (3.5-5.1); Sodium 141 mmol/L (136-145)
[2024-10-05 06:21] LABS: Alanine Aminotransferase 227 U/L (7-40); BUN/Creatinine Ratio 9.6 (10.0-20.0); Bilirubin, Total 0.8 mg/dL (0.2-1.0); Blood Urea Nitrogen < 5 mg/dL (9-23); Calcium 7.6 mg/dL (8.7-10.4); Chloride 114 mmol/L (98-107); Total Protein 5.2 g/dL (5.7-8.2)
[2024-10-05] MEDS: PANTOPRAZOLE 40 MG/10 ML VIAL INJ IV SCH (08:28)
[2024-10-05] MEDS: SODIUM CHLORIDE 0.9% 1,000 ML IV SCH (11:15)
[2024-10-05] MEDS: cefTRIAXone 1GM/50ML D5W 50 ML IV ONE (12:00)
--- NOTE | 2024-10-05 13:02 | DVHPN2 ---
LAVINIA Gilman is a 28 years old female with no significant PMH except mild anemia and preeclampsia presented to the ED with the chief complaints of abdominal pain which started night on the day of admission. Patient reported before going to sleep last night she has been having mild abdominal pain which appeared to be due to her end of menstrual cycle but in the middle of the night she woke up with severe abdominal pain cramping radiating to back associated with severe nausea, 3 episodes of watery diarrhea without blood, chills, fever, dizziness which prompted her to visit ED. patient reported she has been doing fine all the days except having flu-like illness 2 weeks prior which is resolved but patient reported yesterday she had is a pizza but no other unusual food, no recent sick contacts, no recent travel, no shortness of breath, no chest pain, no other acute symptoms.. Patient denies history of STDs. Patient reported 2 weeks ago she was bitten by mosquitoes but experienced no symptoms after that. On arrival to ED patient found to be in sepsis with T-max 101, tachycardic with heart rate 183, given 3 L of IV normal saline. PMH: Anemia, preeclampsia during resolved PSH: None Family history: Grandmother endometriosis, renal failure and diabetes Social history: Lives at home. Denies smoking but occasional alcohol use and denies other drug abuse Allergies: No known allergies Home medications: None 10/04: Patient seen and examined at the bedside. Patient reported improvement in her abdominal pain and diarrhea since admission, reported no new complaints at this time. Patient is currently on Zosyn, correcting electrolytes and giving fluids. CT abdominal pelvis and gallbladder ultrasound showed GB wall thickening. Ordered stool and blood culture. 10/05: Patient continues to have rapid improvement, no vasopressors required overnight. Blood pressure stable. Nausea resolving. We will deescalate antibiotics from Zosyn to ceftriaxone Flagyl. Deescalate patient to telemetry care. Continue IV fluids. Advance diet. If patient tolerates these changes could possibly be discharge tomorrow some oral antibiotics. Reviewed: Care Plan Changes from previous H/P or p: No Changes General: Per HPI Eyes: No Pain, No Vision change, No Conjunctivae inflammation, No Eyelid inflammation, No Other, No Redness ENT: No Ear pain, No Ear discharge, No Nose pain, No Nose discharge, No Nose congestion, No Mouth pain, No Mouth swelling, No Throat pain, No Throat swelling, No Other Cardiovascular: No Chest Pain, No Palpitations, No Orthopnea, No Paroxysmal Noc. Dyspnea, No Edema, No Lt Headedness, No Other Respiratory: No Cough, No Dry, No Shortness of breath, No SOB with excertion, No Wheezing, No Hemoptysis, No Pleuritic Pain, No Sputum, No Other Gastrointestinal: Nausea, Vomiting, Abdominal Pain, Diarrhea; No Constipation, No Melena, No Hematochezia, No Other Genitourinary: No Dysuria, No Frequency, No Incontinence, No Hematuria, No Retention, No Other Musculoskeletal: No other, No neck pain, No shoulder pain, No arm pain, No back pain, No hand pain, No leg pain, No foot pain Skin: No Rash, No Lesions, No Jaundice, No Bruising, No Other Objective Vitals Vital Signs Date Time Temp Pulse Resp B/P (MAP) Pulse Ox O2 Delivery O2 Flow Rate FiO2 10/05/24 12:30 75 10 108/67 (81) 100 10/05/24 12:00 98.5 98.5 10/05/24 08:00 Room Air* 0 21 Intake/Output Intake and Output 10/05/24 07:00 Intake Total 5725.668 ml Output Total 4 ml Balance 5721.668 ml Intake Oral 1000 ml IV Total 4725.668 ml Output Urine/Stool Mix 4 ml # Voids 3 # Bowel Movements 1 Exam General Appearance: Alert, Oriented X3, Cooperative, Not in acute distress HEENT: Atraumatic, Mucous membranes moist/pink Respiratory: Clear to auscultation, Normal air movement, No added sounds Cardiovascular: Regular rate, Normal S1, Normal S2, No murmurs Abdominal: Hypoactive bowel sounds, soft, not distended but tenderness more in umbilical area Extremities: No edema, Normal pulses, No tenderness/swelling Skin: No Significant rash, except past surgical scars Neuro: Normal speech, sensorimotor deficits none Psych/Mental Status: Mental status NL, Mood NL Medications Current Medications Medications Dose Ordered Sig/Radha Route Start Time Stop Time Status Last Admin Dose Admin Ondansetron HCl 4 mg Q4HP PRN IV 10/04/24 06:45 10/04/24 10:22 4 MG Morphine Sulfate 2 mg Q4HPRN PRN IV 10/04/24 06:45 Enoxaparin Sodium 40 mg DAILY SC 10/04/24 06:45 10/04/24 08:30 40 MG Nitroglycerin 0.4 mg Q5MINP PRN SL 10/04/24 06:45 Pantoprazole Sodium 40 mg DAILY IV 10/05/24 10:00 10/05/24 08:28 40 MG Acetaminophen 650 mg Q4HP PRN PO 10/04/24 15:45 10/04/24 16:08 650 MG Sodium Chloride 1,000 ml @ 60 mls/hr [id number] IV 10/05/24 11:15 10/05/24 11:15 60 MLS/HR Metronidazole 100 ml @ 100 mls/hr Q8HR IV 10/05/24 14:00 10/05/24 12:00 100 MLS/HR Ceftriaxone Sodium 50 ml @ 100 mls/hr DAILY@09 IV 10/06/24 09:00 Laboratory Results Laboratory Tests 10/05/24 05:35 Chemistry Test 10/04/24 17:34 10/05/24 05:35 Magnesium Level 2.4 mg/dL (1.6-2.6) # 2.2 mg/dL (1.6-2.6) Albumin 3.2 g/dL (3.2-4.8) Calcium Level 7.6 mg/dL (8.7-10.4) L Total Protein 5.2 g/dL (5.7-8.2) L LFT Test 10/05/24 05:35 Alanine Aminotransferase (ALT) 227 U/L (7-40) H Alkaline Phosphatase 74 U/L (46-116) Aspartate Amino Transferase (AST) 200 U/L (13-40) H Total Bilirubin 0.8 mg/dL (0.2-1.0) Urinalysis Test 10/04/24 02:52 Urine Color Light-yellow (Yellow) Urine Clarity Clear (Clear) Urine pH 5.5 (5.0-9.0) Urine Specific [place] 1.018 (1.001-1.035) Urine Protein Negative (Negative) Urine Ketones Negative (Negative) Urine Blood Negative /uL (Negative) Urine Nitrite Negative (Negative) Urine Bilirubin Negative (Negative) Urine Urobilinogen Normal mg/dL (Negative) Urine Leukocyte Esterase Negative /uL (Negative) Urine RBC 1 /hpf (0 - 4) Urine Microscopic WBC 1 /HPF (0-5) Urine Squamous Epithelial Cells None seen /hpf (<5) Urine Bacteria None seen /hpf (None Seen) Urine Glucose Normal mg/dL (Normal) Urine Test Negative (Negative) Microbiology Microbiology Date/Time Source Procedure Growth Status 10/04/24 14:05 Stool Stool Culture - Preliminary Resulted 10/04/24 14:05 Stool Shiga Toxin I & II - Final Resulted 10/04/24 06:50 Blood Blood Culture - Preliminary NO GROWTH AFTER 24 HOURS OF INCUBATION. Resulted Labs and/or images reviewed: Labs reviewed by me, Image(s) reviewed by me Assessment/Plan Assessment/Plan [facility] # Sepsis with ? shock likely from gastroenteritis # ? Hypovolemic shock likely from diarrhea # Hypotension likely due to above - given 3 bsgs of IV saline - No pressors for now - continue IV normal saline 150 mL/hour - continuously monitor vitals - continue IV ABX -add Levophed if needed RS GI/Liver # Possible acute gastroenteritis likely infectious etiology # dehydration likely due to above # rule out C diff # R/o Acute pancreatitis # R/o cholecystitis - CT abdominal pelvis and gallbladder ultrasound showed GB wall thickening -ordered stool cultures, pending - ceftriaxone Flagyl (prior Zosyn) -continue IVF -monitor labs -initiated diet clear liquids and advanced as tolerated -supportive management with antipyretics. # GERD -IV Protonix 40 mg /Kidney/ Metabolic # Hypokalemia # hypomagnesemia # hypophosphatemia - Repleting - Monitor lab Heme-Onc MSK/SKin PUD PPX: Protonix DVT PPX: Lovenox Diet: Clear liquids advanced as tolerated Goals of care addressed with the patient for more than 27 minutes: Full code status Plan updated to patient and patient's partner bedside Plan discussed with: Patient My Orders Orders - KIMMY BOUDREAUX MD Procedure Category Date Status Time Sodium Chloride 0.9% PHA 10/05/24 In Process 11:15 Regular Diet DIET 10/05/24 Transmitted Lunch Metronidazole PHA 10/05/24 In Process 500mg/100ml (Flagyl 14:00 Ceftriaxone 1gm/50ml PHA 10/06/24 In Process D5w (Rocephin) 09:00 Transfer Orders XFER 10/05/24 Transmitted 11:09 Date of Service: Oct 05, 2024 Billing Provider: KIMMY BOUDREAUX MD Common Visit Codes: 97208-[id number] CARE 30-74 MIN KIMMY BOUDREAUX MD Oct 05, 2024 13:02
[2024-10-06] VITALS (7 sets, daily range): BP systolic 96–108; BP diastolic 57–67; PULSE 63–83; RESP 16–20; TEMP 37; O2SAT 99–100
[2024-10-06 07:22] LABS: Hematocrit 34.2 % (36.0-46.0); Hemoglobin 11.9 g/dL (12.2-16.2); Mean Corpuscular Hemoglobin 31.0 pg (28.0-32.0); Mean Corpuscular Volume 88.9 fL (80.0-100.0); Nucleated Red Blood Cells % 0.1 %
[2024-10-06 07:37] LABS: Albumin 3.5 g/dL (3.2-4.8); Alkaline Phosphatase 97 U/L (46-116); Anion Gap 7 (5-15); Carbon Dioxide 23 mmol/L (20-31); Glucose 90 mg/dL (74-106); Magnesium 1.7 mg/dL (1.6-2.6); Potassium 3.9 mmol/L (3.5-5.1); Sodium 143 mmol/L (136-145); Total Protein 5.8 g/dL (5.7-8.2)
[2024-10-06 07:47] LABS: Alanine Aminotransferase 238 U/L (7-40); BUN/Creatinine Ratio 8.6 (10.0-20.0); Bilirubin, Total 0.3 mg/dL (0.2-1.0); Blood Urea Nitrogen < 5 mg/dL (9-23); Calcium 8.4 mg/dL (8.7-10.4); Chloride 113 mmol/L (98-107)
[2024-10-06] MEDS: cefTRIAXone 1GM/50ML D5W 50 ML IV SCH (09:19)
[2024-10-06] MEDS ORDERED: AUG875T PO ×2 (14:12→14:22)
--- NOTE | 2024-10-06 14:26 | DVHDS2 ---
Discharge Summary Date of Admission Oct 04, 2024 at 06:35 Date of Discharge: Oct 06, 2024 Labs/Diagnostic Data: Laboratory Results Test 10/06/24 06:28 10/04/24 14:05 10/04/24 08:23 10/04/24 06:50 White Blood Count 5.3 10^3/uL (4.4-10.8) Red Blood Count 3.84 10^6/uL (4.0-5.20) Hemoglobin 11.9 g/dL (12.2-16.2) Hematocrit 34.2 % (36.0-46.0) Mean Corpuscular Volume 88.9 fL (80.0-100.0) Mean Corpuscular Hemoglobin 31.0 pg (28.0-32.0) Mean Corpuscular Hemoglobin Concent 34.9 g/dL (32.0-36.0) Red Cell Distribution Width 13.6 % (11.8-14.3) Platelet Count 254 10^3/uL (140-450) Mean Platelet Volume 9.6 fL (6.9-10.8) Neutrophils (%) (Auto) 56.7 % (37.0-80.0) Lymphocytes (%) (Auto) 32.0 % (10.0-50.0) Monocytes (%) (Auto) 7.4 % (0.0-12.0) Eosinophils (%) (Auto) 3.4 % (0.0-7.0) Basophils (%) (Auto) 0.5 % (0.0-2.0) Neutrophils # (Auto) 3.0 10 ^3/uL (1.6-8.6) Lymphocytes # (Auto) 1.7 10 ^3/uL (0.4-5.4) Monocytes # (Auto) 0.4 10 ^3/uL (0-1.3) Eosinophils # (Auto) 0.2 10 ^3/uL (0-0.8) Basophils # (Auto) 0 10 ^3/uL (0-0.2) Nucleated Red Blood Cells 0.1 % Sodium Level 143 mmol/L (136-145) Potassium Level 3.9 mmol/L (3.5-5.1) Chloride Level 113 mmol/L (98-107) Carbon Dioxide Level 23 mmol/L (20-31) Anion Gap 7 (5-15) Blood Urea Nitrogen < 5 mg/dL (9-23) Creatinine 0.58 mg/dL (0.550-1.02) Glomerular Filtration Rate Calc 127 mL/min (>90) BUN/Creatinine Ratio 8.6 (10.0-20.0) Serum Glucose 90 mg/dL (74-106) Calcium Level 8.4 mg/dL (8.7-10.4) Phosphorus Level 3.0 mg/dL (2.4-5.1) Magnesium Level 1.7 mg/dL (1.6-2.6) Total Bilirubin 0.3 mg/dL (0.2-1.0) Aspartate Amino Transferase (AST) 115 U/L (13-40) Alanine Aminotransferase (ALT) 238 U/L (7-40) Alkaline Phosphatase 97 U/L (46-116) Total Protein 5.8 g/dL (5.7-8.2) Albumin 3.5 g/dL (3.2-4.8) Stool for White Cells None seen Influenza Type A Antigen Negative (Negative) Influenza Type B Antigen Negative (Negative) SARS-CoV-2 Antigen (Rapid) Negative (NEGATIVE) Lactic Acid Level 1.0 mmol/L (0.4-2.0) Lipase 51 U/L (12-53) Test 10/04/24 05:00 10/04/24 03:08 10/04/24 03:00 10/04/24 02:52 Urine Opiates Screen Neg (NEGATIVE) Urine Fentanyl Screen Neg (NEGATIVE) Urine Barbiturates Screen Neg (NEGATIVE) Urine Phencyclidine Screen Neg (NEGATIVE) Urine Amphetamines Screen Neg (NEGATIVE) Urine Benzodiazepines Screen Neg (NEGATIVE) Urine Cocaine Screen Neg (NEGATIVE) Urine Cannabinoids Screen Neg (NEGATIVE) Thyroid Stimulating Hormone (TSH) 1.40 uIU/mL (0.55-4.78) Plasma/Serum Blood Alcohol 3.3 mg/dL (<10) D-Dimer, Quantitative 1.36 mg/L FEU (0.0-0.49) Urine Color Light-yellow (Yellow) Urine Clarity Clear (Clear) Urine pH 5.5 (5.0-9.0) Urine Specific [place] 1.018 (1.001-1.035) Urine Protein Negative (Negative) Urine Ketones Negative (Negative) Urine Blood Negative /uL (Negative) Urine Nitrite Negative (Negative) Urine Bilirubin Negative (Negative) Urine Urobilinogen Normal mg/dL (Negative) Urine Leukocyte Esterase Negative /uL (Negative) Urine RBC 1 /hpf (0 - 4) Urine Microscopic WBC 1 /HPF (0-5) Urine Squamous Epithelial Cells None seen /hpf (<5) Urine Bacteria None seen /hpf (None Seen) Urine Glucose Normal mg/dL (Normal) Urine Test Negative (Negative) Other Laboratory Tests 10/06/24 06:28 Brief Hx & Hospital Course: 28 years old female with no significant PMH except mild anemia and preeclampsia presented to the ED with the chief complaints of abdominal pain which started night on the day of admission. Patient reported before going to sleep last night she has been having mild abdominal pain which appeared to be due to her end of menstrual cycle but in the middle of the night she woke up with severe abdominal pain cramping radiating to back associated with severe nausea, 3 episodes of watery diarrhea without blood, chills, fever, dizziness which prompted her to visit ED. patient reported she has been doing fine all the days except having flu-like illness 2 weeks prior which is resolved but patient reported yesterday she had is a pizza but no other unusual food, no recent sick contacts, no recent travel, no shortness of breath, no chest pain, no other acute symptoms.. Patient denies history of STDs. Patient reported 2 weeks ago she was bitten by mosquitoes but experienced no symptoms after that. 10/04: Patient seen and examined at the bedside. Patient reported improvement in her abdominal pain and diarrhea since admission, reported no new complaints at this time. Patient is currently on Zosyn, correcting electrolytes and giving fluids. CT abdominal pelvis and gallbladder ultrasound showed GB wall thickening. Ordered stool and blood culture. 10/05: Patient continues to have rapid improvement, no vasopressors required overnight. Blood pressure stable. Nausea resolving. We will deescalate antibiotics from Zosyn to ceftriaxone Flagyl. Deescalate patient to telemetry care. Continue IV fluids. Advance diet. If patient tolerates these changes could possibly be discharge tomorrow some oral antibiotics. 10/06: Patient off of vasopressors for more than 48 hours. Doing well. Symptoms controlled. Mild LFT elevation likely from initial shock, this will lag next few days. Patient did well with de-escalation of antibiotics. Source likely gastroenteritis. Patient is stable for discharge. diagnosis: Gastroenteritis, likely infectious etiology Diarrhea, resolved , C diff ruled out Hypotension due to above Is gallbladder wall thickening, Transaminitis, plateauing, possible shock liver Dehydration Intravascular volume depletion GERD Hypokalemia Hypomagnesemia Hypophosphatemia Discharge plan: - Take Augmentin 875 mg twice daily for next 7 days - Take probiotic twice daily for next 7 days ([id number] [facility], or take natural Fijian yogurt spoonful twice daily) - follow up with PCP to review discharge . for PCP: Patient will likely need repeat gallbladder ultrasound for thickened gallbladder wall. - DC clinic repeat CMP to follow up liver enzymes and kidney function. Condition at Discharge: Fair Final Diagnosis/Problems List Gastroenteritis, likely infectious etiology Diarrhea, resolved , C diff ruled out Hypotension due to above Is gallbladder wall thickening, Transaminitis, plateauing, possible shock liver Dehydration Intravascular volume depletion GERD Hypokalemia Hypomagnesemia Hypophosphatemia Discharge Disposition: Home Discharge Instruct/Medications Diet: Regular Activity: No Restrictions, As Tolerated Follow Up/Referral: See below Medications: See below Scheduled Amoxicillin & Pot Clavulanate (Augmentin Tablet), 875 MG PO BID Scheduled PRN Cyclobenzaprine Hcl (Cyclobenzaprine Hcl), 1 TAB PO QPM PRN Discharge Statement: "Patient was advised to return to the ER or call 911 if any headaches, dizziness, shortness of breath, chest pain, abdominal pain, bleeding, fevers, or worsening of medical condition. Patient was counseled about treatment plan, medications, possible side effects, patientverbalized understanding. All questions were answered to the best of my ability. This discharge took greater then 30 minutes in planning, reviewing documentation, counseling the patient, and discussing with other team members." Date of Service: Oct 06, 2024 Billing Provider: KIMMY BOUDREAUX MD Common Visit Codes: 44175-WVA/OBS DISCH DAY >30min KIMMY BOUDREAUX MD Oct 06, 2024 14:26
== END 2024-10-06 15:35 | disposition home or self-care (01) | DRG 249 ==
LOC: ER 02:43 → OVERFLOW 06:35 → ICU CENTRL 09:27 → EAST 10-05 14:51 → TELE-EAST 10-05 23:39
PROVIDERS: ADMIT Nurse Practitioner Family; ATTEND Nurse Practitioner Family
DX: A09 Infectious gastroenteritis and colitis, unspecified (principal); K72.00 Acute and subacute hepatic failure without coma; I95.89 Other hypotension; E83.39 Other disorders of phosphorus metabolism; E86.0 Dehydration; E87.6 Hypokalemia; K21.9 Gastro-esophageal reflux disease without esophagitis; E83.42 Hypomagnesemia; D64.9 Anemia, unspecified; R74.01 Elevation of levels of liver transaminase levels; Z83.3 Family history of diabetes mellitus; Z79.899 Other long term (current) drug therapy
CPT/HCPCS: 36415; 71045; 74177; 76705; 80053; 80307; 80320; 81001; 81025; 83605; 83690; 83735; 84100; 84132; 84443; 85025; 85048; 85379; 87040; 87045; 87081; 87426; 87427; 87493; 87804; 93005; 93306; 96365; 96375; G0378; J2405; J2470; J2543; J3480; J3490

== ENCOUNTER 2024-10-09 00:44 | Emergency (ER) | payer MEDICAID ==
[~2024-10-09] VITALS: Ht 152.4 cm; Wt 64.9 kg
[~2024-10-09 00:44] MED LIST changes: +AUG875T PO
[2024-10-09 00:45] VITALS: BP 127/72; PULSE 117; RESP 20; TEMP 98.6; O2SAT 97
[2024-10-09] MEDS ORDERED: ACET500T58 PO (03:12)
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
--- NOTE | 2024-10-09 03:41 | DVH ---
Indication: neck pain Comparison: None Technique: Utilizing a multislice CT scanner, a CT scan of the cervical spine was performed without i ntravenous contrast. Coronal and sagittal reformatted images All CT scans at this facility use dose modulation, iterative reconstruction, and/or weight based dosi ng when appropriate to reduce radiation dose to as low as reasonably achievable. DLP (mGy-cm): 459 Findings: No acute compression deformity, fracture, or subluxation. No significant foraminal stenosis or central canal stenosis. The prevertebral soft tissues are not thickened. Thyroid is unremarkable. Limited sections of the lung apices demonstrate no pneumothorax. Impression: 1. No acute fractures or subluxation.
== END 2024-10-09 04:10 | disposition home or self-care (01) ==
LOC: ER 00:52
DX: S16.1XXA Strain of muscle, fascia and tendon at neck level, initial encounter (principal); V89.2XXA Person injured in unspecified motor-vehicle accident, traffic, initial encounter; Y93.89 Activity, other specified; Y92.410 Unspecified street and highway as the place of occurrence of the external cause; Y99.8 Other external cause status
CPT/HCPCS: 72125